=== PATIENT | female | born 1985 | race Caucasian/White ===

== ENCOUNTER 2020-05-16 10:47 | Outpatient (NON) | payer BC, SELFPAY ==
[2020-05-17 06:46] LABS: SARS-CoV-2 RNA PCR Negative
== END 2020-05-16 10:48 ==
LOC: ANHCOVIDDT 10:49
PROVIDERS: PCP Internal Medicine; Visit Provider Internal Medicine
DX: Z20.828 Contact with and (suspected) exposure to other viral communicable diseases (principal); R09.89 Other specified symptoms and signs involving the circulatory and respiratory systems
CPT/HCPCS: 87635; C9803; U0003

== ENCOUNTER 2020-11-16 20:33 | Emergency (ER) | payer BC, SELFPAY ==
[2020-11-16 20:38] VITALS: BP 110/79; PULSE 92; RESP 16; TEMP 36.6; O2SAT 98
[2020-11-16] MEDS: HYDROcodone/acetaminophen (*CRX) 7.5-325 MG TABLET 1 TAB PO (21:36)
[2020-11-16] MEDS: LORazepam (*CRX) 1 MG TABLET PO (21:36)
--- NOTE | 2020-11-16 21:46 | ED.GENADULT ---
HPI - General Adult General Chief complaint: Skin/Abscess/Foreign Body <Steven Andres PA-C - Last Filed: 11/16/20 21:50> Stated complaint: cyst on tailbone? <Steven Andres PA-C - Last Filed: 11/16/20 21:50> Time Seen by Provider: 11/16/20 21:13 <Steven Andres PA-C - Last Filed: 11/16/20 21:50> Source: patient and RN notes reviewed <Steven Andres PA-C - Last Filed: 11/16/20 21:50> Mode of arrival: ambulatory <Steven Andres PA-C - Last Filed: 11/16/20 21:50> Limitations: no limitations <Steven Andres PA-C - Last Filed: 11/16/20 21:50> History of Present Illness HPI narrative: Patient is a 35-year-old female who presents with red tender swollen area in the gluteal cleft that began over the last several days patient had fallen on her buttocks as a possible etiology for the cause for it patient denies similar occurrence in the past denies any fever chills nausea vomiting weakness presents in no distress has not taken anything for her symptoms <Steven Andres PA-C - Last Filed: 11/16/20 21:50> Related Data Home medications: Home Medications Medication Instructions Recorded Confirmed norethindrone 1 mg-ethinyl 1 tablet PO DAILY 03/20/20 11/13/20 estradiol 10 mcg (24)-iron 10 mcg(2) tablet vortioxetine 10 mg tablet 10 mg PO DAILY 11/13/20 11/13/20 <Steven Andres PA-C - Last Filed: 11/16/20 21:50> Allergies/adverse reactions: Allergies Allergy/AdvReac Type Severity Reaction Status Date / Time No Known Allergies Allergy Verified 11/13/20 09:01 <Steven Andres PA-C - Last Filed: 11/16/20 21:50> Review of Systems Review of Systems: All systems reviewed & are unremarkable except as noted in HPI and below <Steven Andres PA-C - Last Filed: 11/16/20 21:50> PMFSH Social History Social History: Social History Smoking status: Former smoker Tobacco type: e-cigarettes/vaping Alcohol intake: never <Steven Andres PA-C - Last Filed: 11/16/20 21:50> Exam Narrative: Exam Narrative: GENERAL: Well-appearing, well-nourished, and in no acute distress. HEAD: Normocephalic, atraumatic. EYES: PERRLA and EOMI. ENT: Nares clear, no rhinorrhea or epistaxis. Mucous membranes moist. CHEST: Clear to auscultation. No respiratory distress. No wheezes rales or rhonchi HEART: Regular rate and rhythm. No murmur heard. Normal peripheral pulses. EXTREMITIES: Normal range of motion. No edema. SKIN: Warm, dry, no rash. Patient with red tender swollen area on the left intergluteal cleft consistent with abscess NEURO: No focal deficits. Alert and oriented x3. Cranial nerves II through XII grossly intact PSYCH: Normal mood and affect. <Steven Andres PA-C - Last Filed: 11/16/20 21:50> Course Course Emergency Course: Patient had drainage of abscess will be medically treated tolerated the procedure without difficulty afebrile nontoxic-appearing felt appropriate for outpatient reevaluation will be given surgical consult <Steven Andres PA-C - Last Filed: 11/16/20 21:50> MICA MINER/PA Physician Supervision For this patient encounter, I reviewed the MICA MINER or PA documentation, treatment plan, and medical decision making; and I had [id number] time with this patient. 35 yo female presented to the ED for painful gluteal swelling. Found to have gluteal cleft abscess on exam. I examined her and felt that it was appropriate for drainage in the ED. It does not appear to be a true perirectal abscess, it does not cross midline. <Lino Alexander MD - Last Filed: 11/17/20 00:29> Vital Signs Vital signs: Vital Signs Temperature 36.6 C 11/16/20 20:38 Pulse Rate 92 11/16/20 20:38 Respiratory Rate 16 11/16/20 20:38 Blood Pressure 110/79 11/16/20 20:38 Pulse Oximetry 98 11/16/20 20:38 Temperature 36.6 C 11/16/20 20:38 Pulse Rate 101 H 11/16/20 2
[2020-11-16 22:47] VITALS: BP 112/79; PULSE 101; RESP 12; O2SAT 96
== END 2020-11-16 22:52 | disposition home or self-care (01) ==
LOC: ANHED 22:04
PROVIDERS: Emergency Provider Emergency Medicine; PCP Internal Medicine
DX: L02.31 Cutaneous abscess of buttock (principal)
CPT/HCPCS: 10061; 99283; A9270

== ENCOUNTER 2021-11-10 11:02 | Outpatient (CLI) | payer BC, SELFPAY ==
[2021-11-10 12:18] LABS: Thyroid Stimulating Hormone 0.334 uIU/mL (0.465-4.680)
== END 2021-11-10 11:03 | disposition home or self-care (01) ==
PROVIDERS: PCP Internal Medicine; Visit Provider Internal Medicine
DX: F32.9 Major depressive disorder, single episode, unspecified (principal)
CPT/HCPCS: 36415; 84443

== ENCOUNTER 2021-12-31 14:58 | Outpatient (CLI) | payer BC, SELFPAY ==
[2021-12-31 16:16] LABS: Thyroid Stimulating Hormone 0.322 uIU/mL (0.465-4.680)
[2021-12-31 16:37] LABS: Free T4 Free Thyroxine 1.09 ng/mL (0.78-2.19)
== END 2021-12-31 14:59 | disposition home or self-care (01) ==
LOC: ANHOBOP 15:00
PROVIDERS: PCP Internal Medicine; Visit Provider Internal Medicine
DX: R79.89 Other specified abnormal findings of blood chemistry (principal)
CPT/HCPCS: 36415; 84439; 84443

== ENCOUNTER 2022-05-26 14:39 | Outpatient (CLI) | payer BC, SELFPAY ==
[2022-05-26 16:39] LABS: Thyroid Stimulating Hormone 0.287 uIU/mL (0.465-4.680)
== END 2022-05-26 14:40 | disposition home or self-care (01) ==
LOC: ANHLAB 14:40
PROVIDERS: PCP Internal Medicine; Visit Provider Internal Medicine
DX: E05.90 Thyrotoxicosis, unspecified without thyrotoxic crisis or storm (principal)
CPT/HCPCS: 36415; 84443

== ENCOUNTER 2022-06-03 14:57 | Outpatient (CLI) | payer BC, SELFPAY ==
--- NOTE | ~2022-06-03 | NM_ITS ---
EXAMINATION: NM thyroid scan w uptake DATE: 06/04/2022 15:44 INDICATION: Subclinical hyperthyroidism. Thyroid toxicosis. COMPARISON: None. TECHNIQUE: 327 microcuries I-123 was administered orally in capsule form. Scintigraphic images of th e thyroid gland were obtained at 24 hours. Thyroid uptake was calculated by the technologist. FINDINGS: The thyroid uptake is 42.9% (normal 10-30%), with the right lobe measuring 32.7% uptake and the left 10.9%. The right thyroid lobe is both larger and with greater degree of uptake than the contralateral left thyroid lobe. This most prominent at the lower pole of the right thyroid where a possible hyper functioning nodule could not be excluded. A hyperfunctioning nodule however would be expected to resu lt in a greater degree of suppression in the remainder of the thyroid and the appearance could simply reflect diffuse increased uptake in the setting of Graves' disease with a localized larger volume of tissue at the lower pole of the right thyroid. IMPRESSION: 1. Significantly elevated 24-hour iodine uptake but with asymmetry to the left and right thyroid lob es as detailed above. Differential would include Graves' disease in the setting of an asymmetric thyr oid and/or a hyperfunctioning nodule at the lower pole of the right thyroid. Would recommend correlat ion with thyroid ultrasound. Reviewed, dictated and finalized at location A. DDER IMPRESSION: 1. Significantly elevated 24-hour iodine uptake but with asymmetry to the left and right thyroid lobes as detailed above. Differential would include Graves' disease in the setting of an asymmetric thyroid and/or a hyperfunctioning nodul e at the lower pole of the right thyroid. Would recommend correlation with thyr oid ultrasound.
== END 2022-06-03 14:58 | disposition home or self-care (01) ==
PROVIDERS: PCP Internal Medicine; Visit Provider Internal Medicine
DX: E05.90 Thyrotoxicosis, unspecified without thyrotoxic crisis or storm (principal)
CPT/HCPCS: 78014; A9516

== ENCOUNTER → 2022-06-09 15:17 | Outpatient (CLI) | payer BC, SELFPAY ==
--- NOTE | ~2022-06-09 | US_ITS ---
Thyroid ultrasound. Clinical History: Thyrotoxicosis Findings: Real-time sonography of the thyroid gland was performed. The right lobe measures 5.7 x 1.4 x 1.4 cm. The left lobe measures 3.4 x 0.8 x 1.1 cm. The isthmus is 2 mm in AP diameter. There is a mixed solid and cystic nodule at the right midpole measuring 1.0 x 1.5 x 1.2 cm, wider chad n tall, with circumscribed border. Impression: 1.5 cm right thyroid lobe nodule, consistent with TR-3 lesion. Given size, recommend one-year follow- up ultrasound. Reviewed, dictated and finalized at location [] RUCTIONAL DEVELOPER Impression: 1.5 cm right thyroid lobe nodule, consistent with TR-3 lesion. Given size, evelyn mmend one-year follow-up ultrasound.
== END ==
LOC: EXPGOSHRAD 15:20
PROVIDERS: PCP Internal Medicine; Visit Provider Internal Medicine
DX: E05.90 Thyrotoxicosis, unspecified without thyrotoxic crisis or storm (principal)
CPT/HCPCS: 76536

== ENCOUNTER 2022-10-07 14:41 | Outpatient (CLI) | payer BC, SELFPAY ==
[2022-10-07 15:25] LABS: Alanine Aminotransferase 19 U/L (6-35); Alkaline Phosphatase 63 U/L (38-126); Anion Gap 6 mmol/L (8-16); Aspartate Amino Transferase 23 U/L (14-36); Bilirubin,Total 0.5 mg/dL (0.2-1.3); Blood Urea Nitrogen 11 mg/dL (7-17); Calcium 8.5 mg/dL (8.4-10.2); Carbon Dioxide 29 mmol/L (22-30); Chloride 102 mmol/L (98-107); Cholesterol 197 mg/dL (0-200); Estimated Glomerular Filt Rate > 60; Glucose 95 mg/dL (65-110); HDL Direct 42 mg/dL; Potassium 3.9 mmol/L (3.4-5.0); Sodium 137 mmol/L (137-145); Triglycerides 116 mg/dL (<150)
[2022-10-07 15:37] LABS: LDL Cholesterol Direct 135 mg/dL
[2022-10-07 17:30] LABS: Free T4 Free Thyroxine 1.05 ng/mL (0.78-2.19)
== END 2022-10-07 14:42 | disposition home or self-care (01) ==
PROVIDERS: PCP Internal Medicine; Visit Provider Nurse Practitioner
DX: E89.0 Postprocedural hypothyroidism (principal); Z79.899 Other long term (current) drug therapy; E78.5 Hyperlipidemia, unspecified
CPT/HCPCS: 36415; 80053; 80061; 84439; 84443

== ENCOUNTER 2024-03-21 14:49 | Outpatient (CLI) | payer BC, SELFPAY ==
[2024-03-21 15:38] LABS: Hematocrit 40.1 % (37.0-47.0); Hemoglobin 13.2 g/dL (12.0-15.0); Mean Corpuscular HGB Conc 32.9 g/dl (32-36); Mean Corpuscular Hemoglobin 29.1 pg (26-34); Mean Corpuscular Volume 88.5 fl (80-100); Mean Platelet Volume 10.4 fl (7.4-10.4); Platelet Count Result 272 k/mm3 (150-375); Red Blood Count 4.53 M/mm3 (4.2-5.4); White Blood Count 6.8 K/mm3 (4.5-10.0)
[2024-03-21 15:55] LABS: Alanine Aminotransferase 17 U/L (6-35); Albumin Level 4.3 g/dL (3.5-5.1); Alkaline Phosphatase 77 U/L (38-126); Anion Gap 8 mmol/L (4-12); Aspartate Amino Transferase 33 U/L (14-36); Bilirubin,Total 0.3 mg/dL (0.2-1.3); Blood Urea Nitrogen 8 mg/dL (7-17); Calcium 8.8 mg/dL (8.4-10.2); Carbon Dioxide 26 mmol/L (22-30); Chloride 104 mmol/L (98-107); Cholesterol 215 mg/dL (0-200); Estimated Glomerular Filt Rate > 60; Glucose 100 mg/dL (65-110); HDL Direct 44 mg/dL; Sodium 138 mmol/L (137-145); Triglycerides 101 mg/dL (<150)
[2024-03-21 16:06] LABS: LDL Cholesterol Direct 141 mg/dL
[2024-03-21 16:32] LABS: Hemoglobin A1C 5.7 % (<5.7)
[2024-03-21 17:31] LABS: Free T4 Free Thyroxine 0.77 ng/mL (0.78-2.19)
== END 2024-03-21 14:50 | disposition home or self-care (01) ==
LOC: ANHLAB 14:50
PROVIDERS: PCP Nurse Practitioner; Visit Provider Nurse Practitioner
DX: E05.90 Thyrotoxicosis, unspecified without thyrotoxic crisis or storm (principal); E78.5 Hyperlipidemia, unspecified; Z79.899 Other long term (current) drug therapy
CPT/HCPCS: 36415; 80053; 80061; 83036; 84439; 84443; 85027

== ENCOUNTER 2024-05-08 14:41 | Outpatient (CLI) | payer BC, SELFPAY ==
[2024-05-08 16:17] LABS: Free T4 Free Thyroxine 0.77 ng/mL (0.78-2.19)
== END 2024-05-08 14:42 | disposition home or self-care (01) ==
PROVIDERS: PCP Nurse Practitioner; Visit Provider Nurse Practitioner
DX: R79.89 Other specified abnormal findings of blood chemistry (principal)
CPT/HCPCS: 36415; 84439; 84443

== ENCOUNTER 2024-08-24 16:10 | Outpatient (CLI) | payer BC, SELFPAY ==
[2024-08-24 16:57] LABS: Free T4 Free Thyroxine 1.37 ng/dL (0.78-2.19)
[2024-08-24 17:04] LABS: Thyroid Stimulating Hormone 0.436 uIU/mL (0.465-4.680)
== END 2024-08-24 16:11 | disposition home or self-care (01) ==
LOC: ANHLAB 16:11
PROVIDERS: PCP Nurse Practitioner; Visit Provider Nurse Practitioner
DX: E03.9 Hypothyroidism, unspecified (principal)
CPT/HCPCS: 36415; 84439; 84443

== ENCOUNTER 2025-02-27 07:39 | Outpatient (CLI) | payer BC, SELFPAY ==
--- OUTSIDE RECORDS SUMMARY | 2025-02-27 07:43 | XMS_ITS | Clinical Summary ---
Author Organization [facility] [address] [place] [address] Care Team Providers Care Automatic Operator Name Role Phone Juan Soria MD Primary Care Provider [phone] Allergies No known active allergies Medications Lo Loestrin Fe 1 mg-10 mcg (24)/10 mcg (2) tablet per tabletIndications: Contraception Take 1 tablet by mouth every morning 2 Active zolpidem (AMBIEN) 10 mg tabletIndications: Sleep-Onset Insomnia Take 10 mg by mouth nightly 2 Active Trintellix 20 mg tabletIndications: major depressive disorder Take 20 mg by mouth every morning 2 Active acetaminophen (TYLENOL) 500 mg tablet Take 1 tablet (500 mg total) by mouth every 6 (six) hours as needed for pain 30 tablet 3 Active ibuprofen (ADVIL,MOTRIN) 600 mg tablet Take 1 tablet (600 mg total) by mouth every 6 (six) hours as needed for pain 30 tablet 3 Active oxyCODONE (ROXICODONE) 5 mg immediate release tabletIndications: Pain Take 1 tablet (5 mg total) by mouth every 6 (six) hours as needed for pain (breakthroug h pain) 20 tablet 3 Active Active Problems Problem Noted Date Diagnosed Date Right thyroid nodule 07/20/2022 Overview (07/23/2022): PROCEDURE PERFORMED (07/20/22, [place]) Right hemithyroidectomy. Low TSH level 07/17/2022 Thyroid nodule 06/24/2022 Cervical strain, acute, initial encounter 2020 Contusion of left knee 03/07/2021 Fall [address] stairs 03/07/2021 Generalized anxiety disorder 11/10/2013 Overview (09/30/2016): GENERALIZED ANXIETY DIS Encounters Date Type Department Care Team Description 02/18/2025 Telephone [facility] Medicine Pediatric Genetics [facility] [address] [place] [address] [place] [id number] Dinah Chavez CGC from Last 3 Months Medical History Medical History Date Comments Pleurisy 2007 Pleurisy Thyroid nodule Family History Medical History Relation Name Comments Hypertension Father Hypertension; Other Mother lipoma; Anesthesia problems Other Other Sister 2 Healthy; Relation Name Status Comments Father Mother Alive Other Sister 1 Alive Sister 2 Social History Tobacco Use Types Packs/Day Years Used Date Smoking Tobacco: Former Cigarettes Q uit: 2009 Smokeless Tobacco: Never Tobacco Cessation:Counseling Given: Not Answered Alcohol Use Standard Drinks/Week Comments Yes 0 (1 standard drink = 0.6 oz pur e alcohol) AUDIT-C Answer Date Recorded Q1: How often do you have a drink containing alc ohol? 2-4 times a month 07/20/2022 Q2: How many drinks containi ng alcohol do you have on a typical day when you are drinking? 1 or 2 07/20/2022 Q3: How often do you have si x or more drinks on one occasion? Never 07/20/2022 Comments No Sex and Gender Information Value Date Recorded Sex Assigned at Not on file Legal Sex Female 12:27 PM SIGNAL MECHANIC Gender Identity Not on file Sexual Orientation Not on file Obstetrics History Last Filed Vital Signs Vital Sign Reading Time Taken Comments Blood Pressure 161/100 07/22/2022 9:59 PM SIGNAL MECHANIC Pulse 60 07/22/2022 9:59 PM SIGNAL MECHANIC Temperature 36.4 C (97.5 F) 07/22/2022 9:59 PM SIGNAL MECHANIC Respiratory Rate 18 07/22/2022 9:59 PM SIGNAL MECHANIC Oxygen Saturation 98% 07/22/2022 9:59 PM SIGNAL MECHANIC Inhaled Oxygen Concentration - - Weight 67.3 kg (148 lb 6.4 oz) 08/05/2022 2:39 P M SIGNAL MECHANIC Height 167.6 cm (5' 6) 08/05/2022 2:39 PM SIGNAL MECHANIC Body Mass Index 23.95 08/05/2022 2:39 PM SIGNAL MECHANIC Plan of Treatment Health Maintenance Due Date Last Done Comments Breast Cancer Screening-Mammogram 1984 Cervical Cancer Screening 1984 Depression Screening 1984 Hepatitis C Screening 1984 DTaP/Tdap/Td Vaccine (1 - Tdap) 1995 Varicella Vaccines (1 of 2 - 13+ 2-dose series) 1997 Hepatitis B Screening 2002 Regular Well Visit/Exam 18-64 2002 HPV Vaccines (1 - 3-dose SCD M series) 2011 Covid-19 Vaccine ( - 2023-2 5 season) 2024 02/03/2021, 01/13/2021 Influenza Vaccine (#1) 2025 Pneumococcal vaccine <65 Aged Out No longer eligible based on patient's age to complete this topic Medical Devices Implanted Type Area Assistant Boiler Operator Device Identifier Shelf Expiration Date Model / Serial / Lot [employer] Weck Horizon Ligate Triangulate Cross Section Wire Small Wide Latex Free [id number] - [id number] Implanted:Qty: 1 on 07/20/2022 by Delisa Tam MD at [facility] Right: Thyroid [employer] [id number] 01/03/2027 [id number] / / [id number] [employer] Weck Horizon 6 Cartridge Ligate Triangulate Cross Section Heart [id number] - [id number] Implanted:Qty: 1 on 07/20/2022 by Delisa Tam MD at [facility] Right: Thyroid [employer] [id number] 03/07/2027 [id number] / / [id number] Insurance [facility] BLUE ACCESS [place] Adjacent Applications ACCESS OOS Adjacent Applications ACCESS OOS [place] [employer] OOS Care Teams Automatic Operator Relationship Specialty Start Date End Date Juan Soria MD PCP - General Internal Medicine 08/05/22
[2025-02-27 09:02] LABS: Alanine Aminotransferase 15 U/L (6-35); Albumin Level 4.0 g/dL (3.5-5.1); Alkaline Phosphatase 100 U/L (38-126); Anion Gap 8 mmol/L (4-12); Aspartate Amino Transferase 23 U/L (14-36); Bilirubin,Total 0.5 mg/dL (0.2-1.3); Blood Urea Nitrogen 11 mg/dL (7-17); Calcium 8.9 mg/dL (8.4-10.2); Carbon Dioxide 25 mmol/L (22-30); Chloride 106 mmol/L (98-107); Cholesterol 218 mg/dL (0-200); Estimated Glomerular Filt Rate > 60; Glucose 101 mg/dL (65-110); HDL Direct 39 mg/dL; Potassium 4.1 mmol/L (3.4-5.0); Sodium 139 mmol/L (137-145); Total Protein 7.1 g/dL (6.3-8.2); Triglycerides 109 mg/dL (<150)
[2025-02-27 09:27] LABS: Free T4 Free Thyroxine 1.27 ng/dL (0.78-2.19)
[2025-02-27 09:34] LABS: Thyroid Stimulating Hormone 0.821 uIU/mL (0.465-4.680)
== END 2025-02-27 07:40 | disposition home or self-care (01) ==
LOC: ANHLAB 07:40
PROVIDERS: PCP Nurse Practitioner; Visit Provider Nurse Practitioner
DX: E03.9 Hypothyroidism, unspecified (principal); E78.5 Hyperlipidemia, unspecified
CPT/HCPCS: 36415; 80053; 80061; 84439; 84443